=== PATIENT | male | born 1950 | race Caucasian/White ===

== ENCOUNTER 2018-03-11 08:23 | Outpatient (CLI) | payer MEDICARE, OTHER | END 2018-03-11 23:59 | disposition home or self-care (01) | LOC: CVU 08:23 | PROVIDERS: ATTEND Registered Nurse | DX: I71.4 Abdominal aortic aneurysm, without rupture (principal); I10 Essential (primary) hypertension; E11.9 Type 2 diabetes mellitus without complications | CPT/HCPCS: 93978 ==